=== PATIENT | female | born 1960 | race Caucasian/White ===

== ENCOUNTER 2023-12-30 11:08 | Emergency (ER) | payer BC, SELFPAY ==
[2023-12-30 11:11] VITALS: BP 137/80; PULSE 62; RESP 16; TEMP 36.7; O2SAT 100; BMI 20.6
--- NOTE | 2023-12-30 11:17 | PC.NURSE ---
DR BENTON AT BEDSIDE
--- NOTE | 2023-12-30 11:20 | XR_ITS ---
PROCEDURE INFORMATION: Exam: XR Left Foot Exam date and time: 12/30/2023 11:25 AM Age: 63 years old Clinical indication: Injury or trauma; Other: Jammed pinky toe on recliner; Blunt trauma; Toes; Left lesser toe(s); Additional info: L 5th toe injury TECHNIQUE: Imaging protocol: Radiologic exam of the left foot. Views: 3 or more views. COMPARISON: No relevant prior studies available. FINDINGS: Bones/joints: Comminuted minimally displaced fracture involving the proximal medial aspect of the proximal phalanx of the little toe. This is an intra-articular fracture. Soft tissues: Soft tissue swelling of the toe IMPRESSION: Comminuted minimally displaced fracture involving the proximal medial aspect of the proximal phalanx of the little toe. This is an intra-articular fracture.
--- NOTE | 2023-12-30 11:21 | ED_ITS ---
Discharge Plan Disposition Patient Disposition: Home, Self-Care Prescriptions Prescriptions: No Action estradiol 0.01 % (0.1 mg/gram) cream 1 applic VAGINAL DAILY Referrals Follow up/Referrals: Alyssa Jimenez APRN [Primary Care Provider] - See instructions Lucie Bay DPM [Staff Physician] - See instructions Activity Restrictions/Add. Instructions Additional Instructions/Restrictions: Take Tylenol and ibuprofen as needed for pain. Wear hard soled shoe. Weight- bear as tolerated. Clinical Impressions Clinical Impression: Fracture of toe of left foot Qualifiers: Encounter type: initial encounter Toe: lesser toe Fracture type: closed Phalanx: proximal Fracture alignment: nondisplaced Qualified Code(s): S92.515A - Nondisplaced fracture of proximal phalanx of left lesser toe(s), initial encounter for closed fracture Print Language Print Language: [place] Discharge ED Provider: Jamari Peña General Adult HPI General Chief complaint: Extremity Injury, Lower Stated complaint: AO 12/28 Pain, swelling, bruising to left foot Time Seen by Provider: 12/30/23 11:12 Mode of Arrival: Ambulatory Source of Information: Patient History of Present Illness HPI narrative: This is a 63-year-old female who presents with a left fifth toe injury. States that she accidentally hit it on a lawn chair yesterday at 4 PM. Denies falling. Denies any other injuries. States that she went to bed and woke up and toe was more painful and swollen. States that she is having difficulty bearing weight. Related Data Home Medications ?Medication ?Instructions ?Recorded ?Confirmed estradiol 0.01% (0.1 mg/gram) 1 applic vaginal DAILY 12/30/23 12/30/23 vaginal cream Allergies Allergy/AdvReac Type Severity Reaction Status Date / Time levofloxacin [From Levaquin] Allergy Unknown Verified 12/30/23 11:24 allergy reaction Penicillins Allergy Unknown Verified 12/30/23 11:24 allergy reaction codeine AdvReac Intermediate N/V abd Verified 12/30/23 11:24 pain PFSH PFS Disclaimer: The information contained in this section may have been updated after the patient was seen, as this information can be updated by other users. Social History Smoking Status: Never smoker alcohol intake: never current occupational status: employed Travel in the last 8 weeks: None ROS Obtained: Yes All systems reviewed & no additional complaints except as documented Physical Exam General General appearance: alert and in no apparent distress Eye Eye exam: Present normal appearance, PERRL and EOMI Respiratory Respiratory exam: Present normal lung sounds bilaterally; Absent respiratory distress Cardiovascular Cardiovascular exam: Present regular rate and normal rhythm Abdominal Exam Abdominal exam: Present soft and distention; Absent tenderness, guarding or rebound Extremities Exam Extremities exam: Present other (Swollen and bruised left fifth toe. Neurovascularly intact. No significant deformity) Neurological Exam Neurological exam: Present alert and oriented X3 Skin Skin exam: Present warm and dry Medical Decision Making Medical Records Medical records reviewed: Yes I reviewed the patient's medical records. Screening: Per USPSTF and CDC recommendations, given the prevalence of disease in our region, it is our hospital?s policy to screen for HIV and viral Hepatitis for all patients aged 18 and over and those with ongoing risk factors. Vladimir Inquiry Pt receiving controlled substance: No Vital Signs: 12/30/23 11:11 12/30/23 11:31 12/30/23 12:03 Temperature 98.1 F 98.1 F Temperature Source Oral Oral Pulse Rate 62 60 Pulse Rate [Right] 62 Respiratory Rate 16 18 16 Blood Pressure 140/69 124/74 Blood Pressure [Left Arm] 137/80 Blood Pressure Mean 92 Blood Pressure Mean [Left Arm] 99 Blood Pressure Source Automatic Cuff Blood Pressure Source [Left Arm] Automatic Cuff 02 Sat by Pulse Oximetry 100 100 Oxygen Delivery Method Room Air Room Air Room Air Orders (Tests/Meds): ORDERS Category Date Time Status Foot XR left minimum 3 views [XR foot LT min 3V] Stat Exams 12/30/23 11:20 Taken Medical Decision Narrative: In summary, this 63-year-old female presents to the emergency department today with left fifth toe injury. On initial evaluation patient is stable and in no acute distress. Differential diagnosis includes but is not limited to fracture, dislocation, sprain. Based on these concerns, I ordered x-ray of the left foot. XR personally interpreted demonstrates subtle fracture at the base of the fifth proximal phalanx. Not significantly displaced. Patient appropriate for discharge with outpatient follow-up with podiatry. Given a hard soled shoe to wear in the meantime and instructed to weight-bear as tolerated. Discharged in stable condition. Critical Care Critical Care Time Critical Care Time: No
[2023-12-30 11:31] VITALS: BP 140/69; PULSE 62; RESP 18; O2SAT 100
[2023-12-30 12:03] VITALS: BP 124/74; PULSE 60; RESP 16; TEMP 36.7; O2SAT 98
== END 2023-12-30 12:14 | disposition home or self-care (01) ==
PROVIDERS: Emergency Provider Student in an Organized Health Care Education/Training Program; PCP Nurse Practitioner Family
DX: S92.515A Nondisplaced fracture of proximal phalanx of left lesser toe(s), initial encounter for closed fracture (principal); W22.8XXA Striking against or struck by other objects, initial encounter; Y92.9 Unspecified place or not applicable
CPT/HCPCS: 73630; 99283